=== PATIENT | male | born 1990 | race African-American/Black ===

== ENCOUNTER 2016-10-31 10:01 | Emergency (ER) | payer OTHER ==
[~2016-10-31] VITALS: Ht 180.3 cm; Wt 80.7 kg
[2016-10-31 11:56] LABS: BASOPHIL % 0.3 % (0-2); PLATELET COUNT 389 x10^3mcL (130-400); RED CELL DISTRIBUTION WIDTH 13.7 % (11.5-14.5)
[2016-10-31 12:00] LABS: CALCIUM 9.1 mg/dL (8.5-10.1); CARBON DIOXIDE 32.7 mmol/L (21-32); CHLORIDE SERUM 94 mmol/L (98-107); CREATININE SERUM 1.1 mg/dL (0.7-1.3); GFR1 > 60 mL/min; GLUCOSE SERUM 114 mg/dL (74-106); SODIUM SERUM 135 mmol/L (136-145)
[2016-10-31 12:04] LABS: POTASSIUM SERUM 2.9 mmol/L (3.5-5.1)
[2016-10-31 14:00] VITALS: BP 150/95
[2016-10-31 14:27] LABS: AMPHETAMINE QUAL UR POSITIVE (NEG <=1000)
== END 2016-10-31 14:30 | disposition home or self-care (01) ==
LOC: ED 10:01
PROVIDERS: Emergency Medicine Emergency Medical Services
DX: T45.7X1A Poisoning by anticoagulant antagonists, vitamin K and other coagulants, accidental (unintentional), initial encounter (principal); F14.90 Cocaine use, unspecified, uncomplicated; F15.90 Other stimulant use, unspecified, uncomplicated; K21.9 Gastro-esophageal reflux disease without esophagitis; Y92.89 Other specified places as the place of occurrence of the external cause
CPT/HCPCS: J1200; J2405; J7030